=== PATIENT | male | born 2000 | race Caucasian/White ===

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

== ENCOUNTER 2022-09-13 15:28 | Emergency (ER) | payer SELFPAY ==
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
[2022-09-13 15:31] VITALS: BP 118/85; PULSE 111; RESP 18; TEMP 36.3; O2SAT 99
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
[2022-09-13] MEDS: Ketorolac 15 MG/ML VIAL IM (15:49)
[2022-09-13] MEDS: Lidocaine 5% Patch 1 PATCH TP (17:12)
== END 2022-09-13 17:25 | disposition home or self-care (01) ==
PROVIDERS: Emergency Provider Emergency Medicine; PCP Internal Medicine
DX: S00.81XA Abrasion of other part of head, initial encounter (principal); S40.812A Abrasion of left upper arm, initial encounter; S40.811A Abrasion of right upper arm, initial encounter; S20.214A Contusion of middle front wall of thorax, initial encounter; Y04.2XXA Assault by strike against or bumped into by another person, initial encounter; Y93.89 Activity, other specified; Y92.89 Other specified places as the place of occurrence of the external cause; Y99.9 Unspecified external cause status
CPT/HCPCS: 99284; 71046; 71100; 76700; 99283; J1885

== ENCOUNTER 2023-03-03 13:10 | Emergency (ER) | payer SELFPAY ==
[2023-03-03 13:15] VITALS: PULSE 71; RESP 18; TEMP 36.8; O2SAT 98
--- NOTE | 2023-03-03 13:23 | ED.GENADUL_ITS ---
HPI General Mode of arrival: ambulatory . Date/Time Provider Initiated Documentation: 03/03/23 13:12 . Limitations to Documentation: no limitations . Information obtained by: patient and RN notes reviewed . History of Present Illness 23 year old M presents to the emergency department with the chief complaint of Sore throat, cold symptoms, described as moderate, Patient started experiencing this day(s) (1) and it has been constant. No relieving factors improve symptom(s), No exacerbating factors reported . Related Data Home Medications Medication Instructions Recorded Confirmed Unknown [No Known Home Meds] 10/18/20 03/03/23 Allergies Allergy/AdvReac Type Severity Reaction Status Date / Time amoxicillin Allergy Unverified 03/03/23 13:20 General Stated Complaint: RespSymp JS: 4 Review of Systems Constitutional Constitutional: Reports chills, Denies fever(s), Reports headache(s) and Reports malaise Eyes Eyes: Denies eye discharge ENT Ears, Nose, Mouth, and Throat: Reports as per HPI, Denies ear discharge, Denies otalgia, Reports headache(s), Reports nasal congestion, Denies neck pain, Reports sinus pressure, Reports sore throat and Denies throat swelling Cardiovascular Cardiovascular: Denies chest pain and Denies dyspnea Respiratory Respiratory: Denies cough and Denies dyspnea Musculoskeletal Musculoskeletal: Denies joint swelling and Denies neck pain Integumentary/Breasts Skin/Breast: Denies rash Neurologic Neurologic: Reports headache(s) Allergic/Immunologic Allergic/Immunologic: Denies throat swelling Exam Const General: cooperative, comfortable and no acute distress Orientation: alert and awake HENUT Head: normal to inspection, normocephalic and atraumatic Ears: hearing grossly normal bilaterally and TM's normal bilaterally General nose exam: external nose normal Face and sinus: no erythema Mouth: oral mucosae normal, no drooling, no muffled voice and no trismus Throat: abnormal tonsil bilaterally erythema; no exudates and no hypertrophy and posterior oropharynx abnormal erythema Neck Neck: normal visual inspection, full ROM, no meningeal signs, trachea midline, supple and lymphadenopathy bilateral anterior cervical Resp Effort & Inspection: normal respiratory effort and able to speak in complete sentences Auscultation: clear to auscultation bilaterally Cardio Rate: regular rate Rhythm: regular rhythm Heart Sounds: S1 normal, S2 normal, normal S1 and S2, no click, no gallops, no murmurs and no rubs Skin General skin exam: no rashes or lesions noted and dry skin (warm) Neuro General: patient alert, patient awake, patient oriented x3, gait normal and moves all extremities Cognition: normal cognition Speech: speech normal Course Vital Signs Vital signs: Vital Signs Temperature 36.8 C 03/03/23 13:15 Pulse 71 03/03/23 13:15 Respiratory Rate 18 03/03/23 13:15 Pulse Oximetry 98 03/03/23 13:15 Temperature 36.8 C 03/03/23 13:15 Temperature Source Temporal Artery Scan 03/03/23 13:15 Pulse 71 03/03/23 13:15 Respiratory Rate 18 03/03/23 13:15 Blood Pressure Position Sitting 03/03/23 13:15 Pulse Oximetry 98 03/03/23 13:15 Oxygen Delivery Method Room Air 03/03/23 13:15 Oxygen Flow Rate 0 03/03/23 13:15 Pain Level 0 03/03/23 13:15 Medical Decision Making Patient presenting to the clinic for chief complaint of cold symptoms. Patient reports symptoms have been going on for the past 1 days. reports headache, nasal congestion, and sore throat. Physical exam shows mild posterior pharynx and tonsillar erythema, anterior cervical lymphadenopathy, otherwise clear lung sounds and otherwise unremarkable exam. Patient has no signs of meningitis, peritonsillar abscess, retropharyngeal abscess, Dave's angina, or life- threatening Airway infection. Strep COVID and flu testing is all negative. conservative management discussed along with follow-up and return precautions. After discussion of diagnosis and plan of care patient has no further needs, questions, or concerns and states clear understanding to return to the emergency department for any worsening symptoms. This documentation was generated using [employer]ime[employer] system, please disregard any oddities of phrase or misspellings. Lab Data Lab results reviewed: Yes I reviewed the patient's lab results. Quality:SDOH Health Related Social Needs: Health related social needs transpo insecurity PFSH All Active Problems (Updated 03/03/23 @ 13:47 by Kike Freedman NP) URI (upper respiratory infection) (Acute) Laceration of right little finger (Acute) Social History Smoking/Tobacco Use Status: Former Tobacco Use Quit Date: 02/17/23 Smoking risk assessment performed?: Yes Alcohol Intake: current Alcohol Intake frequency: 0-2 drinks per day Drug use: Never Substance use type: does not use Housing: apartment Do you feel safe at home: Yes Do you feel safe in your relationship?: Yes Discharge Plan Disposition Patient Disposition: Home Discharge Details Clinical Impression: URI (upper respiratory infection) Primary Care Provider: Fernando Don ED Provider: Kike Freedman Home Meds and New Rx's Prescriptions: No Action No Known Home Meds Discharge Instructions Instructions: Upper Respiratory Infection (ED) Additional Instructions: You may continue to use appropriate [id number] medication as needed for symptom management while your body recovers from viral illness. If you develop any new or significant worsening of symptoms feel free to return the emergency department for reassessment otherwise follow-up with local urgent care or primary care provider if not improving Stand Alone Forms: Work Release Referrals: Fernando Don MD [Primary Care Provider] - Discharge Data Discharge Date/Time-TO BE ENTERED AT DEPARTURE: 03/03/23 13:55
[2023-03-03 13:29] VITALS: PULSE 71; RESP 18; TEMP 36.8; O2SAT 98
== END 2023-03-03 13:55 | disposition home or self-care (01) ==
PROVIDERS: Emergency Provider Nurse Practitioner Family; PCP Internal Medicine
DX: R07.0 Pain in throat (principal); J06.9 Acute upper respiratory infection, unspecified
CPT/HCPCS: 99282; 87081; 99283

== ENCOUNTER 2024-07-24 10:16 | Emergency (ER) | payer MEDICAID, SELFPAY ==
[2024-07-24 10:16] VITALS: BP 126/80; PULSE 71; RESP 18; TEMP 36.7; O2SAT 96
[2024-07-24 10:24] VITALS: BP 126/80; PULSE 71; RESP 18; TEMP 36.7; O2SAT 96
--- NOTE | 2024-07-24 10:43 | W.ED.GENAD ---
Discharge Plan Disposition Patient Disposition: Home Condition: Stable Discharge Details Clinical Impression: N&V (nausea and vomiting) Primary Care Provider: Fernando Don ED Provider: Yonathan Balderas Home Meds and New Rx's Prescriptions: New ondansetron 4 mg tablet,disintegrating 4 mg PO Q8H PRN (Reason: nausea and vomiting) Qty: 30 0RF Discharge Instructions Additional Instructions: Your blood work and exam did not show any emergent findings. You can take a daily antacid such as 20 mg of omeprazole daily. Follow-up with your primary care provider especially if her symptoms are continuing in 1 to 2 weeks. Trying to limit alcohol to 1-2 drinks per day and also not using marijuana frequently may help. If you feel significantly more ill, have persistent vomiting that does not stop despite the nausea medication return to the emergency department for reevaluation Stand Alone Forms: Work Release HPI General Mode of arrival: ambulatory. Date/Time Provider Initiated Documentation: 07/24/24 10:16. Limitations to Documentation: no limitations. Information obtained by: patient. History of Present Illness 24 year old M presents to the emergency department with the chief complaint of n/v, described as moderate, Patient started experiencing this month(s) (3) and it has been intermittent. No relieving factors improve symptom(s), No exacerbating factors reported . Patient notes denies chest pain, fever/chills and shortness of breath. Patient did receive the following treatments prior to arrival, none Related Data Home Medications ?Medication ?Instructions ?Recorded ?Confirmed ondansetron 4 mg disintegrating 4 mg PO Q8H PRN nausea and 07/24/24 tablet vomiting #30 tabs Previous Rx's ?Medication ?Instructions ?Recorded ondansetron 4 mg disintegrating 4 mg PO Q8H PRN nausea and 07/24/24 tablet vomiting #30 tabs Allergies Allergy/AdvReac Type Severity Reaction Status Date / Time amoxicillin Allergy Skin Rash Unverified 07/24/24 10:22 General Stated Complaint: Abd Prob JS: 3 Review of Systems All systems reviewed & are unremarkable except as noted in HPI and below Constitutional Constitutional: Denies chills, Denies fever(s) and Denies weakness Cardiovascular Cardiovascular: Denies chest pain and Denies dyspnea Respiratory Respiratory: Denies dyspnea Gastrointestinal Gastrointestinal: Reports abdominal pain, Reports nausea and Reports vomiting Neurologic Neurologic: Denies weakness Exam Const General: no acute distress Orientation: alert [facility] Head: normal to inspection Ears: external ears normal General nose exam: external nose normal Mouth: moist mucous membranes Eyes General: appearance normal, both eyes and all related structures Neck Neck: normal visual inspection Resp Effort & Inspection: normal respiratory effort and able to speak in complete sentences Cardio Rate: regular rate GI Palpation: soft, not firm, no guarding and nontender Auscultation: normal bowel sounds Skin General skin exam: no rashes or lesions noted Neuro General: patient alert and patient oriented x3 Extrem General: normal to inspection Psych Mental Status: mental status grossly normal Course Vital Signs Vital signs: Vital Signs Temperature 36.7 C 07/24/24 10:16 Pulse 71 07/24/24 10:16 Respiratory Rate 18 07/24/24 10:16 Blood Pressure 126/80 07/24/24 10:16 Pulse Oximetry 96 07/24/24 10:16 Temperature 36.7 C 07/24/24 10:24 Temperature Source Oral 07/24/24 10:24 Pulse 71 07/24/24 10:24 Respiratory Rate 18 07/24/24 10:24 Blood Pressure 126/80 07/24/24 10:24 Pulse Oximetry 96 07/24/24 10:24 Oxygen Delivery Method Room Air 07/24/24 10:24 Oxygen Flow Rate 0 07/24/24 10:24 Pain Level 5 07/24/24 10:24 Medical Decision Making 24-year-old male who denies any chronic medical problems comes in with several months of intermittent nausea vomiting when wakes up. Says when he is vomiting has some upper abdominal discomfort. Denies any fevers or chills. He does drink alcohol daily states he will have anywhere from 2-6 beers a day. He also uses marijuana almost daily denies any other drug use. He is well-appearing on exam speaking full sentences. His abdomen is soft and aseptically no abdominal tenderness currently. Suspect his symptoms could be related to his alcohol and marijuana use, will evaluate for possible electrolyte abnormalities of anemia. Given lack of abdominal tenderness I doubt surgical pathology such as cholecystitis, SBO or appendicitis do not feel imaging of his abdomen/pelvis is indicated. Will treat his symptoms with Protonix and Zofran and reassess. Labs benign, patient stable no vomiting here as well as no abdominal tenderness so I do not feel any imaging is indicated. He will follow-up with his PCP and return precautions given Differential Diagnosis Differential Diagnosis: Cyclic vomiting syndrome, cannabinoid hyperemesis syndrome, electrolyte abn Lab Data Lab results reviewed: Yes I reviewed the patient's lab results. PFSH All Active Problems (Updated 07/24/24 @ 12:21 by Yonathan Balderas MD) N&V (nausea and vomiting) (Acute) Laceration of right little finger (Acute) Social History Smoking/Tobacco Use Status: Current-Occasional Tobacco Type: e-cigarettes Smoking risk assessment performed?: Yes Alcohol Intake: current Alcohol Intake frequency: 0-2 drinks per day Drug use: Never Substance use type: does not use Housing: apartment Do you feel safe at home: Yes Do you feel safe in your relationship?: Yes PAWSS Have you Been Recently Intoxicated or Drunk Within the Last 30 days?: No Have you Ever Experienced Previous Episodes of Alcohol Withdrawal?: No Have you ever Experienced Withdrawal Seizures?: No Have you ever Experienced Delirium Tremens(DT)s?: No Have you ever undergone Alcohol Rehabilitation Treatment (i.e, inpt ot outpatient treatment programs)?: No Have you ever Experienced Blackouts?: No Have you ever Combined Alcohol with other Downers within the last 90 days?: No Have you ever Combined Alcohol with any other Substance of Abuse during the last 90 days?: No Positive Blood Alcohol level on Presentation? [PCS.BAL]: No Evidence of Increased Autonomic Activity (i.e. HR>120, tremor, sweating, agitation, nausea)?: No Result: 0
[2024-07-24 10:58] LABS: Bilirubin Negative (Negative); Blood Negative (Negative); Clarity Cloudy (Clear); Glucose Negative (Negative); Ketones Trace mg/dL (Negative); Leukocyte Esterase Negative (Negative); Nitrite Negative (Negative); Urobilinogen 0.2 mg/dL (Up to 0.2); pH 6.5 (5-8)
[2024-07-24] MEDS: Ondansetron 4 MG/2 ML VIAL IVP (10:58)
[2024-07-24] MEDS: Normal Saline 1,000 ML 1000 ML IV (10:58)
[2024-07-24] MEDS: Pantoprazole 40 MG VIAL IVP (10:59)
[2024-07-24 11:07] LABS: Abs Immature Grans 0.02 10^3/uL (0.0-0.06); Absolute Basophil Count 0.03 10^3/uL (0.0-0.2); Absolute Lymphocyte Count 1.74 10^3/uL (1.2-3.4); Absolute Monocyte Count 0.43 10^3/uL (0.1-0.8); Absolute Neutrophil Count 4.86 10^3/uL (1.2-6.7); Basophils % 0.4 %; Eosinophils % 1.4 %; HGB 14.9 g/dL (13.5-17.5); Immature Grans % 0.3 %; Lymphocytes % 24.2 %; MCH 29.9 pg (27.0-33.0); MCHC 34.7 % (32.0-36.0); MCV 86 fL (80-95); Neutrophils % 67.7 %; Platelet Count 280 10^3/uL (130-400); RBC 4.98 10^6/uL (4.36-5.78); RDW 12.7 % (11.8-14.1); RDW-SD 39.7 fL; WBC 7.18 10^3/uL (4.4-10.8)
[2024-07-24 11:42] LABS: ALT 43 U/L (16-63); AST 33 U/L (15-37); Albumin 4.2 g/dL (3.4-5.0); Alkaline Phosphatase 106 U/L (46-116); Anion Gap 7.7 mmol/L (3-11); BUN 13 mg/dL (7-18); Bilirubin, Direct 0.2 mg/dL (0.0-0.2); Bilirubin, Total 1.1 mg/dL (0.2-1.0); CO2 28.3 mmol/L (21.0-32.0); CREATININE 0.8 mg/dL (0.70-1.30); Calcium 9.3 mg/dL (8.5-10.1); Chloride 103 mmol/L (98-107); Estimated GFR 127.53 (mL/min/1.73m2); Glucose 110 mg/dL (74-106); Lipase 27 U/L (<78); Magnesium 1.9 mg/dL (1.8-2.4); Potassium 4.1 mmol/L (3.5-5.1); Sodium 139 mmol/L (136-145); Total Protein 7.6 g/dL (6.4-8.2)
[2024-07-24 12:21] VITALS: BP 121/80; PULSE 56; RESP 18; TEMP 36.6; O2SAT 99
[2024-07-24 12:35] VITALS: BP 121/80; PULSE 56; RESP 18; TEMP 36.6; O2SAT 99
== END 2024-07-24 12:36 | disposition home or self-care (01) ==
LOC: ER 12:39
PROVIDERS: Emergency Provider Emergency Medicine; PCP Internal Medicine
DX: R11.2 Nausea with vomiting, unspecified (principal); F12.90 Cannabis use, unspecified, uncomplicated
CPT/HCPCS: 99284 ×2; 96374; 96375; 80053; 83690; 96361; 81003; 82248; 83735; 85025; J2405; J2470